=== PATIENT | female | born 1970 | race American Indian/Alaskan Native ===

== ENCOUNTER 2017-10-10 14:05 | Emergency (ER) | payer OTHER ==
[2017-10-10 19:59] VITALS: BP 156/102
[2017-10-10] MEDS ORDERED: ULTRAM PO ONE (20:06)
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
--- NOTE | 2017-10-10 22:41 | XRay Report ---
FINAL REPORT EXAM: XR WRIST 2V LT HISTORY: left wrist pain TECHNIQUE: AP and lateral views of the left wrist PRIORS: None. FINDINGS: There is no evidence for acute fracture or dislocation. No soft tissue swelling or radiopaque foreign bodies are seen. Bony mineralization is normal and joint spaces are maintained. IMPRESSION: No acute bony or soft tissue abnormality noted.
== END 2017-10-10 23:06 | disposition home or self-care (01) ==
LOC: ED 14:05
DX: S86.911A Strain of unspecified muscle(s) and tendon(s) at lower leg level, right leg, initial encounter (principal); S66.912A Strain of unspecified muscle, fascia and tendon at wrist and hand level, left hand, initial encounter; S46.812A Strain of other muscles, fascia and tendons at shoulder and upper arm level, left arm, initial encounter; F17.200 Nicotine dependence, unspecified, uncomplicated; V89.2XXA Person injured in unspecified motor-vehicle accident, traffic, initial encounter; Y93.89 Activity, other specified; Y92.89 Other specified places as the place of occurrence of the external cause; Y99.8 Other external cause status
CPT/HCPCS: 99283